=== PATIENT | female | born 1995 | race Two or more races ===

== ENCOUNTER 2019-04-08 08:23 | Emergency (ER) | payer BC ==
[~2019-04-08] VITALS: Ht 157.5 cm; Wt 65.8 kg
[2019-04-08 08:31] VITALS: BP 104/67
[2019-04-08] MEDS ORDERED: ACETAMINOPHEN ES 500 MG TABLET ONE (08:41)
[2019-04-08] MEDS ORDERED: IBUPROFEN 600 MG TABLET PO ONE ×2 (08:41→09:00)
[2019-04-08] MEDS ORDERED: ACETAMINOPHEN ES 500 MG TABLET PO ONE (09:00)
== END 2019-04-08 10:19 | disposition home or self-care (01) ==
LOC: ER 08:23
DX: J10.1 Influenza due to other identified influenza virus with other respiratory manifestations (principal)